=== PATIENT | female | born 1970 | race Caucasian/White ===

== ENCOUNTER 2016-12-02 16:44 | Emergency (ER) | payer OTHER ==
[~2016-12-02 16:44] MED LIST: GABAPENTIN400 MG PO; LISINOPRIL30 MG PO; NICODERM 21MG PA1 EA TD; PLAVIX75 MG PO; TOPROL XL50 MG PO
== END 2016-12-02 19:37 | disposition home or self-care (01) ==
LOC: ER 16:44
DX: R51 Headache (principal); I10 Essential (primary) hypertension; F41.9 Anxiety disorder, unspecified; Z90.710 Acquired absence of both cervix and uterus; F17.210 Nicotine dependence, cigarettes, uncomplicated; Z79.899 Other long term (current) drug therapy
CPT/HCPCS: 70450; 99284-25

== ENCOUNTER 2017-01-09 06:46 | Emergency (ER) | payer OTHER | END 2017-01-09 08:12 | disposition home or self-care (01) | LOC: ER 06:46 | DX: H66.93 Otitis media, unspecified, bilateral (principal); I10 Essential (primary) hypertension; J32.9 Chronic sinusitis, unspecified; G43.909 Migraine, unspecified, not intractable, without status migrainosus; Z86.73 Personal history of transient ischemic attack (TIA), and cerebral infarction without residual deficits; F17.210 Nicotine dependence, cigarettes, uncomplicated; Z79.899 Other long term (current) drug therapy | CPT/HCPCS: 70450; 70490; 99283-25 ==

== ENCOUNTER 2017-01-14 15:49 | Emergency (ER) | payer OTHER | END 2017-01-14 18:20 | disposition home or self-care (01) | LOC: ER 15:49 | DX: H72.91 Unspecified perforation of tympanic membrane, right ear (principal); J06.9 Acute upper respiratory infection, unspecified; I10 Essential (primary) hypertension; F17.210 Nicotine dependence, cigarettes, uncomplicated; Z79.899 Other long term (current) drug therapy | CPT/HCPCS: 99282 ==